=== PATIENT | male | born 1995 | race Caucasian/White ===

== ENCOUNTER 2025-02-05 10:40 | Emergency (ER) | payer MEDICAID ==
[~2025-02-05] VITALS: Ht 170.2 cm; Wt 63.5 kg
[2025-02-05 10:40] VITALS: BP 118/75; PULSE 60; RESP 16; TEMP 98.4; O2SAT 97
[2025-02-05] MEDS ORDERED: ZOFRAN ODT ONE (11:17)
[2025-02-05] MEDS: ZOFRAN ODT SL STA (11:20)
[2025-02-05 11:21] VITALS: BP 118/75; PULSE 60; RESP 16; TEMP 98.4; O2SAT 97
[2025-02-05] MEDS ORDERED: ONDA-226 PO (11:22)
== END 2025-02-05 11:27 | disposition home or self-care (01) ==
LOC: ER 10:40
DX: K52.9 Noninfective gastroenteritis and colitis, unspecified (principal)
CPT/HCPCS: 99283